=== PATIENT | male | born 1995 | race Caucasian/White ===

== ENCOUNTER 2017-12-20 18:04 | Emergency (ER) | payer SELFPAY ==
[2017-12-20] MEDS ORDERED: Naproxen 500 MG TAB ONE (18:43)
--- NOTE | 2017-12-20 19:28 | RAD ---
RIGHT WRIST THREE VIEWS: 12/20/2017 HISTORY: Injury. Trauma. Pain. COMPARISON: None. FINDINGS: There is no widening of the scapholunate interval. There is no displaced fracture or evidence of dis location. Alignment appears normal on the lateral view. IMPRESSION: No acute findings. If symptoms persist, followup in 7-10 days with dedicated scaphoid view is advise d. POS: [facility]
== END 2017-12-20 18:45 | disposition home or self-care (01) ==
LOC: MADERS 18:04
DX: S66.911A Strain of unspecified muscle, fascia and tendon at wrist and hand level, right hand, initial encounter (principal); F17.220 Nicotine dependence, chewing tobacco, uncomplicated; V80.010A Animal-rider injured by fall from or being thrown from horse in noncollision accident, initial encounter